=== PATIENT | female | born 1955 | race Caucasian/White ===

== ENCOUNTER 2018-07-16 11:11 | Emergency (ER) | payer BC ==
--- NOTE | 2018-07-16 11:13 | EDM.PDOC ---
ED HPI GENERAL MEDICAL PROBLEM - General Chief Complaint: Gastrointestinal Problem Stated Complaint: NAUSEA,DIARRHEA Time Seen by Provider: 07/16/18 11:12 Source of Information: Reports: Patient, RN, RN Notes Reviewed History Limitations: Reports: No Limitations - History of Present Illness INITIAL COMMENTS - FREE TEXT/NARRATIVE: Patient presents to the ED at [facility] for the evaluation of nausea and vomiting for the past 4 days. Patient states she feels weak and dehydrated. No exposures. No change in any medications. No recent travels. No close family member or contacts with similar symptoms. Patient states her abdomen feels sore from the vomiting. Has had some diarrhea. Appetite has been poor. Fluid intake ok. No history of any abdominal problems. No previous abdominal surgeries. Has normal BM's usually. Overall has been in good health. Lower Chest Pain Score (Numeric/FACES): 2 - Related Data Allergies Allergy/AdvReac Type Severity Reaction Status Date / Time Penicillins Allergy Cannot Verified 07/16/18 11:43 Remember ED ROS GENERAL - Review of Systems Review Of Systems: See Below Constitutional: Denies: Fever, Chills Respiratory: Denies: Shortness of Breath, Cough Cardiovascular: Denies: Chest Pain, Palpitations GI/Abdominal: Reports: Abdominal Pain, Diarrhea, Nausea, Vomiting Skin: Reports: No Symptoms Neurological: Reports: No Symptoms ED EXAM, GI/ABD - Physical Exam Exam: See Below Exam Limited By: No Limitations General Appearance: Alert, No Apparent Distress Respiratory/Chest: No Respiratory Distress, Lungs Clear, Normal Breath Sounds Cardiovascular: Normal Peripheral Pulses, Regular Rate, Rhythm GI/Abdominal Exam: Normal Bowel Sounds, Soft, Tender Neurological: Alert, Oriented Skin Exam: Warm, Dry, Intact, Normal Color Course - Vital Signs Last Recorded V/S: Last Vital Signs Temp 35.5 C 07/16/18 11:11 Pulse 59 L 07/16/18 12:00 Resp 16 07/16/18 11:11 BP 173/64 H 07/16/18 12:00 Pulse Ox 97 07/16/18 11:11 - Orders/Labs/Meds Orders: Active Orders 24 hr Category Date Time Status UA W/SUSANA RFLX IF INDICATED [URIN] Stat Lab 07/16/18 11:20 Ordered Sodium Chloride 0.9% [Saline Flush] Med 07/16/18 11:20 Active 10 ml FLUSH ASDIRECTED PRN Peripheral IV Insertion Adult [OM.PC] Routine Oth 07/16/18 11:20 Ordered Medication Orders Sodium Chloride (Saline Flush) 10 ml FLUSH ASDIRECTED PRN PRN Reason: Keep Vein Open Labs: Laboratory Tests 07/16/18 07/16/18 Range/Units 11:36 11:36 WBC 4.1 (4.0-10.0) x10^3/uL RBC 5.25 (4.00-5.50) x10^6/uL Hgb 16.3 H (12.0-16.0) g/dL Hct 47.5 H (33.0-47.0) % MCV 90.5 (78.0-93.0) fL MCH 31.0 (26.0-32.0) pg MCHC 34.3 (32.0-36.0) g/dL RDW Coeff of Mary 12.9 (10.0-15.0) % Plt Count 140 (130-400) x10^3/uL Neut % (Auto) 56.3 (50.0-80.0) % Lymph % (Auto) 28.9 (25.0-50.0) % Freestone % (Auto) 12.4 H (2.0-11.0) % Eos % (Auto) 1.9 (0.0-4.0) % Baso % (Auto) 0.5 (0.2-1.2) % Sodium 137 (136-145) mmol/L Potassium 2.9 L* (3.5-5.1) mmol/L Chloride 101 (98-107) mmol/L Carbon Dioxide 26 (21-32) mmol/L Anion Gap 12.9 (10-20) mmol/L BUN 18 (7-18) mg/dL Creatinine 1.0 (0.55-1.02) mg/dL Est Cr Clr Drug Dosing 50.37 mL/min Estimated GFR (MDRD) 56 Glucose 106 (74-106) mg/dL Calcium 9.0 (8.5-10.1) mg/dL Magnesium 1.9 (1.8-2.4) mg/dL Meds: Medications Generic Name Dose Route Start Last Admin Trade Name Freq PRN Reason Stop Dose Admin Sodium Chloride 10 ml 07/16/18 11:20 Saline Flush FLUSH ASDIRECTED PRN Keep Vein Open Discontinued Medications Generic Name Dose Route Start Last Admin Trade Name Julianne PRN Reason Stop Dose Admin Sodium Chloride 1,000 mls @ 999 mls/hr 07/16/18 11:20 07/16/18 11:38 Normal Saline IV 07/16/18 12:20 999 mls/hr ONETIME ONE Administration Ondansetron HCl 4 mg 07/16/18 11:21 07/16/18 11:39 Zofran IVPUSH 07/16/18 11:22 4 mg ONETIME ONE Administration Departure - Departure Time of Disposition: 12:27 Disposition: Home, Self-Care 01 Condition: Good Clinical Impression: Viral gastroenteritis - Discharge Information *PRESCRIPTION DRUG MONITORING PROGRAM REVIEWED*: Not Applicable *COPY OF PRESCRIPTION DRUG MONITORING REPORT IN PATIENT JOSUÉ: Not Applicable Instructions: Viral Gastroenteritis, Adult Referrals: Rosa Lopez MD [Primary Care Provider] - Forms: ED Department Discharge Additional Instructions: 1. Stay well hydrated and rest 2. Eat a bland diet 3. Recommend taking Potassium with food 4. Take one extra potassium pill in addition to your normal dose 5. No changes with any other medications 6. See your Primary as symptoms warrant - Problem List Review Problem List Initiated/Reviewed/Updated: Yes - My Orders Last 24 Hours: My Active Orders 07/16/18 11:20 UA W/SUSANA RFLX IF INDICATED [URIN] Stat Sodium Chloride 0.9% [Saline Flush] 10 ml FLUSH ASDIRECTED PRN Peripheral IV Insertion Adult [OM.PC] Routine - Assessment/Plan Last 24 Hours: My Active Orders 07/16/18 11:20 UA W/SUSANA RFLX IF INDICATED [URIN] Stat Sodium Chloride 0.9% [Saline Flush] 10 ml FLUSH ASDIRECTED PRN Peripheral IV Insertion Adult [OM.PC] Routine Assessment:: Viral Gastroenteritis Hypokalemia Plan: Lab results discussed with patient. Symptom likely viral. Recommend staying well hydrated, keep taking home meds as prescribed. May take one additional KCL tab at home, per patient request. See PCP as symptoms warrant. Patient declines to take any medications for her low potassium level while in ER. She states she will take her own medication when she gets home.
[2018-07-16] MEDS ORDERED: Sodium Chloride 0.9% 10 ML Syringe FLUSH PRN (11:20)
[2018-07-16] MEDS ORDERED: Sodium Chloride 0.9% 1,000 ML IV ONE (11:20)
[2018-07-16] MEDS ORDERED: Ondansetron 4 MG/2 ML SDV IVPUSH ONE (11:21)
[2018-07-16 11:58] LABS: ANION GAP 12.9 mmol/L (10-20)
[2018-07-16] MEDS ORDERED: Take Home: Ondansetron 4 MG Tab.DIS, 2 Tab Pack PO ONE (12:41)
== END 2018-07-16 12:50 | disposition home or self-care (01) ==
LOC: VM.ED 11:11
DX: A08.4 Viral intestinal infection, unspecified (principal); E87.6 Hypokalemia; Z88.0 Allergy status to penicillin
CPT/HCPCS: 80048; 83735; 85025; 96361; 96374; 99284; A9270-GY; J2405; J7030